=== PATIENT | female | born 2000 | race Native Hawaiian/Other Pacific Islander ===

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

== ENCOUNTER 2018-06-21 14:54 | Emergency (ER) | payer OTHER ==
[~2018-06-21] VITALS: Ht 162.6 cm; Wt 77.1 kg
[2018-06-21 15:00] VITALS: BP 124/82; TEMP 97.7
== END 2018-06-21 15:33 | disposition home or self-care (01) ==
LOC: ED 14:54
DX: S50.361A Insect bite (nonvenomous) of right elbow, initial encounter (principal); L03.113 Cellulitis of right upper limb; W57.XXXA Bitten or stung by nonvenomous insect and other nonvenomous arthropods, initial encounter
CPT/HCPCS: 99281

== ENCOUNTER 2018-08-17 11:08 | Emergency (ER) | payer OTHER ==
[~2018-08-17] VITALS: Ht 160 cm; Wt 81.2 kg
[2018-08-17 11:53] LABS: PLATELET COUNT 218 K/uL (152-353)
[2018-08-17 12:09] LABS: POTASSIUM 3.9 mmol/L (3.6-5.2)
[2018-08-17 13:00] VITALS: BP 115/69; TEMP 98
== END 2018-08-17 13:00 | disposition home or self-care (01) ==
LOC: ED 11:08
DX: J02.0 Streptococcal pharyngitis (principal)
CPT/HCPCS: 36415; 80053; 85027; 87502; 87651; 99283

== ENCOUNTER 2018-08-31 05:58 | Emergency (ER) | payer OTHER ==
[~2018-08-31] VITALS: Ht 160 cm; Wt 78.0 kg
[2018-08-31 06:10] VITALS: BP 127/67; TEMP 97.3
== END 2018-08-31 07:08 | disposition home or self-care (01) ==
LOC: ED 05:58
DX: B34.9 Viral infection, unspecified (principal); J30.89 Other allergic rhinitis
CPT/HCPCS: 87502; 87651; 99283

== ENCOUNTER 2018-10-06 18:41 | Emergency (ER) | payer OTHER ==
[~2018-10-06] VITALS: Ht 160 cm; Wt 76.7 kg
[2018-10-06 21:37] VITALS: BP 113/68; TEMP 98.6
== END 2018-10-06 21:38 | disposition home or self-care (01) ==
LOC: ED 18:41
DX: J00 Acute nasopharyngitis [common cold] (principal)
CPT/HCPCS: 36415; 87502; 87651; 99283

== ENCOUNTER 2022-06-03 14:33 | Emergency (ER) | payer OTHER ==
[~2022-06-03] VITALS: Ht 160 cm; Wt 105.7 kg
[2022-06-03 17:22] LABS: PLATELET COUNT 270 K/uL (152-353)
[2022-06-03 17:28] LABS: POTASSIUM 3.8 mmol/L (3.6-5.2)
[2022-06-03 19:20] VITALS: BP 132/89; TEMP 98.4
== END 2022-06-03 19:20 | disposition home or self-care (01) ==
LOC: ED 14:33
PROVIDERS: Emergency Medicine Emergency Medical Services
DX: N83.291 Other ovarian cyst, right side (principal)
CPT/HCPCS: 36415; 80048; 81002; 81025; 85027; 96360; 96374; 99284; J1885